=== PATIENT | male | born 1985 | race Hispanic/Latino ===

== ENCOUNTER 2018-03-18 20:02 | Inpatient (IN) | payer MEDICAID ==
--- NOTE | 2018-03-18 20:33 | C.PDOC ---
History Of Present Illness 32 year old male presents to the ER as a prescreen for ETOH detox, last drink was yesterday. Denies any complaints at this time. <Remington Conner - Last Filed: 03/19/18 19:30> <Rachelle Burnham - Last Filed: 03/19/18 01:44> History Per: Patient History/Exam Limitations: no limitations Onset/Duration Of Symptoms: Days Current Symptoms Are (Timing): Still Present Suicide/Self Injury Attempted (Context): None Associated Symptoms: denies: Depression, Suicidal Thoughts Involuntary Hold By: None Recent travel outside of the [place]: No <Remington Conner - Last Filed: 03/19/18 19:30> Time Seen by Provider: 03/18/18 20:30 Chief Complaint (Nursing): Substance Abuse Past Medical History Vital Signs: Last Vital Signs Temp 98.5 F 03/18/18 23:50 Pulse 96 H 03/18/18 23:50 Resp 20 03/18/18 23:50 BP 141/83 03/18/18 23:50 Pulse Ox 95 03/18/18 23:50 <Rachelle Burnham - Last Filed: 03/19/18 01:44> Reviewed: Historical Data, Nursing Documentation, Vital Signs Vital Signs: Last Vital Signs Temp 98.8 F 03/18/18 20:15 Pulse 111 H 03/18/18 20:15 Resp 20 03/18/18 20:15 BP 149/82 03/18/18 20:15 Pulse Ox 94 L 03/18/18 20:15 Surgical History: Appendectomy Family History: States: Unknown Family Hx - Social History Hx Alcohol Use: Yes (4 pints of Vodka a day) Hx Substance Use: No - Immunization History Hx Tetanus Toxoid Vaccination: No Hx Influenza Vaccination: No Hx Pneumococcal Vaccination: No <Remington Conner - Last Filed: 03/19/18 19:30> Review Of Systems Constitutional: Negative for: Fever, Chills Cardiovascular: Negative for: Chest Pain, Palpitations Respiratory: Negative for: Cough, Shortness of Breath Gastrointestinal: Negative for: Nausea, Vomiting Neurological: Negative for: Weakness, Numbness <Remingtno Conner - Last Filed: 03/19/18 19:30> Physical Exam - Physical Exam Appears: Non-toxic Skin: Normal Color, Warm, Dry Head: Atraumatic, Normacephalic Eye(s): bilateral: Normal Inspection Oral Mucosa: Moist Chest: Symmetrical, No Tenderness Cardiovascular: Rhythm Regular Respiratory: Normal Breath Sounds, No Rales, No Rhonchi, No Wheezing Gastrointestinal/Abdominal: Soft, No Tenderness Back: No CVA Tenderness Neurological/Psych: Oriented x3, Normal Speech <Remington Conner - Last Filed: 03/19/18 19:30> ED Course And Treatment - Laboratory Results Result Diagrams: 03/18/18 20:54 03/18/18 20:54 <Rachelle Burnham - Last Filed: 03/19/18 01:44> - Laboratory Results Result Diagrams: 03/18/18 20:54 03/18/18 20:54 O2 Sat by Pulse Oximetry: 94 (Room air) Pulse Ox Interpretation: Normal <Remington Conner - Last Filed: 03/19/18 19:30> Medical Decision Making Medical Decision Making: Blood work and urinalysis ordered. enodrsed to shift foreman pending ua and medical clearance. <Remington Conner - Last Filed: 03/19/18 19:30> Disposition Discussed With DrCelia: Saqib Florentino Comment: accepted the pt on his service and took over the care at 1:44 AM Doctor Will See Patient In The: Hospital Counseled Patient/Family Regarding: Studies Performed, Diagnosis - Disposition Disposition Time: 01:00 - POA Present On Arrival: None <Rachelle Burnham - Last Filed: 03/19/18 01:44> <Remington Conner - Last Filed: 03/19/18 19:30> - Disposition Disposition: HOSPITALIZED Condition: FAIR - Clinical Impression Clinical Impression: Alcohol use disorder - Scribe Statement The provider has reviewed the documentation as recorded by the Scribe Geo Norton All medical record entries made by the Scribe were at my direction and personally dictated by me. I have reviewed the chart and agree that the record accurately reflects my personal performance of the history, physical exam, medical decision making, and the department course for this patient. I have also personally directed, reviewed, and agree with the discharge instructions and disposition. <Remington Cnoner - Last Filed: 03/19/18 19:30> Decision To Admit - Pt Status Changed To: Hospital Disposition Of: Inpatient - Admit Certification Admit to Inpatient:: After my assessment, the patient will require hospit alization for at least two midnights. This is because of the severity of symptoms shown, intensity of services needed, and/or the medical risk in this patient being treated as an outpatient. - InPatient: Physician Admission Certification: I certify that this patient requires 2 or more midnights of care for the following reason:: After my assessment, the raheel ent will require hospitalization for at least two midnights. This is because of the severity of symptoms shown, intensity of services needed, and/or the medical risk in this patient being treated as an outpatient. - . Bed Request Type: Detox Admitting Physician: Saqib Florentino <Rachelle Burnham - Last Filed: 03/19/18 01:44> <Remington Conner - Last Filed: 03/19/18 19:30> - . Patient Diagnosis: Alcohol use disorder
[2018-03-18 21:04] LABS: BASO % 0.8 % (0.0-2.0); EOS % 0.7 % (0.0-4.0); HEMOGLOBIN 15.6 g/dL (12.0-18.0); LYMPH # 1.6 K/uL (1.0-4.3); LYMPH % 26.2 % (20.0-40.0); MEAN CELL VOLUME 95.7 fL (80.0-94.0); MEAN CORPUSCULAR HEMOGLOBIN 32.3 pg (27.0-31.0); MEAN CORPUSCULAR HGB CONC 33.8 g/dL (33.0-37.0); MONO # 0.5 K/uL (0.0-0.8); MONO % 7.7 % (0.0-10.0); NEUT % 64.6 % (50.0-75.0); NRBC % 0.1 % (0.0-2.0); RBC 4.82 Mil/uL (4.40-5.90); RED CELL DISTRIBUTION WIDTH 13.8 % (11.5-14.5); WHITE BLOOD COUNT 6.1 K/uL (4.8-10.8)
[2018-03-18 21:22] LABS: ALB/GLOB RATIO 1.6 (1.0-2.1); ALBUMIN 4.9 g/dL (3.5-5.0); ALT/SGPT 25 U/L (21-72); AST/SGOT 45 U/L (17-59); BLOOD UREA NITROGEN 10 mg/dL (9-20); CALCIUM 9.2 mg/dl (8.6-10.4); GFR NON-AFRICAN AMERICAN > 60
[2018-03-19 00:28] LABS: URINE BACTERIA RARE (<OCC); URINE BILIRUBIN NEGATIVE (NEGATIVE); URINE BLOOD NEGATIVE (NEGATIVE); URINE CLARITY Clear (Clear); URINE COLOR Yellow (YELLOW); URINE GLUCOSE (UA) NORMAL (Normal); URINE HYALINE CAST 0-2 /lpf (0-2); URINE LEUKOCYTE ESTERASE NEG Leu/uL (Negative); URINE PROTEIN NEGATIVE (NEGATIVE); URINE UROBILINOGEN NORMAL mg/dL (0.2-1.0)
[2018-03-19 01:38] LABS: BARBITURATES, UR NEGATIVE (NEGATIVE); BENZODIAZEPINES, UR NEGATIVE (NEGATIVE); OPIATES, UR NEGATIVE (NEGATIVE); PHENCYCLIDINE, UR NEGATIVE (NEGATIVE)
--- NOTE | 2018-03-19 03:23 | PCM.BM ---
<Dm Ribeiro - Last Filed: 03/19/18 03:21> Treatment Plan Problems - Problems identified on initial assessmt potential for alcohol withdrawal Date Initiated: 03/19/18 Time Initiated: 03:22 Assessment reference: NA Status: Active Treatment assets and liabiliti Patient Assests: adapts well, cooperative, ADL independent, physically healthy, cognitively intact Patient Liabilities: substance abuse - Milieu Protocol Maintain good personal hygiene: daily Encourage regular showers, daily Remind pa tient to perform daily oral care, daily Assist patient to perform ADL's Maintain personal safety: every shift Educate patient to report safety concerns to staff, every shift Monitor environment for contraband/sharps Medication safety: Monitor for expected outcome, potential side effects: every shift, Assess barriers to learning: every shift, Assess readiness for medication education: every shift <Aviva Milan - Last Filed: 03/19/18 15:43> - Diagnosis (1) Alcohol use disorder Status: Acute Interventions: 03/19/18 15:43 * Assess 7x/week regarding severity of withdrawal * Educate regarding risks, benefits, side effects and alternatives of m edications * Use Motivational Interviewing for abstinence * Use CBT for relapse prevention * Medication management for withdrawal symptoms * Encourage medication assisted treatment * <Vivienne Rubin - Last Filed: 03/22/18 11:17> Family Contact Family involvement: Famliy/SO not involved - Goals for Treatment Patient goals for treatment: Complete detox and transition to short-term rehab.
[2018-03-19] MEDS: Multiple Vitamins Tab PO SCH (10:09)
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
[2018-03-20] MEDS: Multiple Vitamins Tab PO SCH (09:38)
--- NOTE | 2018-03-20 10:13 | PCM.PYCHPN ---
Psychiatric Progress Note - Psychiatric Progress Note Patient seen today, length of contact: 15 min Patient Chief Complaint: I couldn't sleep last night Problems Identified/Issues Discussed: Patient seen and evaluated, chart reviewed and discussed with the nurse. Patient reports withdrawal symptoms including abdominal cramps, joint pains, nausea, anxiety, and headaches. He reports irritability but denies any feelings of hopelessness and helplessness. He denies any auditory or visual hallucinations, or any psychotic symptoms. He reports that he couldn't sleep last night. He is tolerating the withdrawal medications and denies any side effects. Supportive therapy and psychoeducation were given. Medication Change: Yes Medical Record Reviewed: Yes Mental Status Examination - Cognitive Function Orientation: Person, Place, Situation, Time Memory: Intact Attention: WNL Concentration: Poor Association: WNL Fund of Knowledge: Poor - Mood Mood: Depressed, Anxious - Affect Affect: Constricted - Speech Speech: Soft - Formal Thought Process Formal Thought Process: No Impairment - Suicidal Ideation Suicidal Ideation: No - Homicidal Ideation Homicidal Ideation: No Goal/Treatment Plan - Goal/Treatment Plan Need for Continued Stay: Severe depression anxiety, Severe functional impairment Progress Toward Problem(s) and Goals/Treatment Plan: Alcohol withdrawal Alcohol use d/o - severe Bipolar 1 d/o Taper with librium Gabapentin for augmentation Continue seroquel As needed medications All risks, benefits and alternatives of the meds discussed, and the pt agreed and understood. Attend groups and activities Supportive therapy and psychoeducation [place] for abstinence CBT for relapse prevention Encourage MAT Refer to rehab or IOP, and self-help groups Teach healthy lifestyle methods, i.e. diet, exercise, meditation Smoking cessation with [place] Nicotine patch if needed
[2018-03-21] MEDS: Multiple Vitamins Tab PO SCH (10:31)
[2018-03-21 13:48] VITALS: RESP 18
--- NOTE | 2018-03-21 15:33 | PCM.PYCHPN ---
Psychiatric Progress Note - Psychiatric Progress Note Patient seen today, length of contact: 17 min Patient Chief Complaint: "I need to stop" Medication Change: Yes Medical Record Reviewed: Yes Mental Status Examination - Cognitive Function Orientation: Person, Place, Situation, Time Memory: Intact Attention: WNL Concentration: Poor Association: WNL Fund of Knowledge: Poor - Mood Mood: Depressed, Anxious - Affect Affect: Constricted - Speech Speech: Soft - Formal Thought Process Formal Thought Process: No Impairment - Suicidal Ideation Suicidal Ideation: No - Homicidal Ideation Homicidal Ideation: No Goal/Treatment Plan - Goal/Treatment Plan Need for Continued Stay: Severe depression anxiety, Severe functional impairment Progress Toward Problem(s) and Goals/Treatment Plan: Taper with librium Gabapentin for augmentation Continue seroquel As needed medications All risks, benefits and alternatives of the meds discussed, and the pt agreed and understood. Attend groups and activities Supportive therapy and psychoeducation [place] for abstinence CBT for relapse prevention Encourage MAT Refer to rehab or IOP, and self-help groups Teach healthy lifestyle methods, i.e. diet, exercise, meditation Smoking cessation with [place] Nicotine patch if needed 33 min
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
[2018-03-22] MEDS: Multiple Vitamins Tab PO SCH (09:32)
[2018-03-22] MEDS ORDERED: Propranolol 60 mg ER Cap PO SCH (10:00)
[2018-03-22 13:38] VITALS: BP 128/83; PULSE 66; TEMP 98.3; O2SAT 98
== END 2018-03-22 16:00 | disposition home or self-care (01) | DRG 753 ==
LOC: C.ER 20:02 → C.7D 03-19 01:43
PROVIDERS: ADMIT Psychiatry & Neurology Psychiatry; ATTEND Psychiatry & Neurology Psychiatry
PROC: GZ56ZZZ Individual Psychotherapy, Supportive (ICD-10-PCS; principal; 2018-03-19)
DX: F31.60 Bipolar disorder, current episode mixed, unspecified (principal); F10.230 Alcohol dependence with withdrawal, uncomplicated; F41.9 Anxiety disorder, unspecified; Z87.891 Personal history of nicotine dependence; Y90.8 Blood alcohol level of 240 mg/100 ml or more